=== PATIENT | female | born 1985 | race Caucasian/White ===

== ENCOUNTER 2024-07-04 10:15 | Outpatient (CLI) | payer OTHER, SELFPAY | END 2024-07-04 10:16 | disposition home or self-care (01) | LOC: NFLDREF 07-12 15:36 | PROVIDERS: PCP Family Medicine; Referring Provider Family Medicine; Visit Provider Nurse Practitioner Family | DX: R50.9 Fever, unspecified (principal); R10.9 Unspecified abdominal pain; R82.90 Unspecified abnormal findings in urine | CPT/HCPCS: 87086 ==

== ENCOUNTER 2024-07-04 11:10 | Emergency (ER) | payer OTHER, SELFPAY ==
--- OUTSIDE RECORDS SUMMARY | 2024-07-04 11:12 | XMS_ITS | Encounter Summary ---
Author Organization [employer] Address [address] [place] [address]. [place] [address] Care Team Providers Care Director Of Accounting Name Role Phone Erica Fajardo PA-C Primary Care Pr ovider Shelly Garcia Primary Care Provider Unavaila Erica Keene PA-C Unavailable Heather Eisenberg MD Primary Care Provider [phone]- [phone] Encounter Details Date Type Department Care Team (Late st Contact Info) Description 08/03/2008 Office Visit-[facility] [address] [place] [id number] Mina Moya MD [address] [facility] [address] [place], [place] [address] Social History Tobacco Use Types Packs/Day Years Used Date Smoking Tobacco: Every Day Cigarettes 0.5 3 Comments:since age 17, trymaribell simpson to quit on her own Alcohol Use Standard Drinks/Week Comments Yes 0 (1 standard drink = 0.6 oz pure alcohol) weekends mostly-2 drinks per every 3-4 months Comments No Sex and Gender Information Value Date Recorded Sex Assigned at Not on file Legal 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 DATE: 08/03/2008 CHRISTINE ARAGON DATE OF : 1985 AGE: [age] years old Referring Physician: RAFAL DEUTSCH Referring Clinic: [facility] CURRENT DIAGNOSES 1. - Tobacco excess, 305.1 2. - Syncope, 780.2 ALLERGIES NKA MEDICATIONS (prior to changes made today) 1. Lorazepam 2 mg, Take as Directed CHIEF COMPLAINTS Chest pain HISTORY OF PRESENT ILLNESS I saw Ms. Aragon in consultation today. As you know, she is a very nice 23-year-old woman with past medical history significant for anxiety and depression, for which she is on Pristiq and lorazepam. She also, unfortunately, smokes cigarettes. She has been referred because of frequent, recurring syncopal and near syncopal spells. Ms. Aragon works as a [employer] and she describes her symptoms as feeling warm and hot all over. She then feels like she is developing some tunnel vision. She will slowly start to blackout and can pass out completely. She states, normally she is able to abort this. She feels it coming on. She will often times sit down, lay down and is able to control it. She thinks she has an episode as oftenas once a month. And she states it is quite interfering. She states often times she is quite anxious and worried about it and feels like she is on the verge of having a spell. She notes no triggeringmechanisms. They are not related to stressful situations or emotional situations. She does describe a left-sided chest pain syndrome that occurs in no particular pattern. It can occur when she is performing yoga but it can also occur at rest. She can perform yoga without it happening. She states at times she does get short of breath when she tries to perform yoga and cannot keepup and has to stop, although states she does not exercise on any sort of regular basis. She is unaware of any palpitations or racing heart rhythms. Lab work from your office includes a normal thyroid function test and normal CBC. Electrocardiogramdemonstrates what appears to be a slow sinus rhythm at 56. She has a vertical axis. Otherwise, electrocardiogram appears to be normal. 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 EYES denies diplopia, history of glaucoma or visual field defects. EARS, NOSE, THROAT, MOUTH denies any hearing loss, epistaxis, hoarseness or difficulty speaking. RESPIRATORY dyspnea with exertion CARDIOVASCULAR chest pain, off and on for years, palpitations, dizziness ABDOMINAL denies ulcer disease, hematochezia or melena. MUSCULOSKELETAL denies any history of arthritic symptoms or back problems. NEUROLOGICAL headaches, occ PSYCHIATRIC anxiety controlled with medication, depression controlled with medication ENDOCRINE denies any history of thyroid disease or diabetes mellitus. HEMATOLOGICAL/IMMUNOLOGIC denies any food allergies, seasonal allergies, bleeding disorders. PHYSICAL EXAMINATION VITAL SIGNS: Blood Pressure: 98/70 Sitting, Left arm, regular cuff Pulse- 60.00/min. Weight- 158.20 lbs. Height- 68.00 Temperature- .00 CONSTITUTIONAL cooperative, alert and oriented,well developed, well nourished, in no acute distress. SKIN warm and dry to touch, no apparent skin lesions, or masses noted. HEAD normocephalic, atraumatic EYES Pupils equal and round, conjunctivae and lids unremarkable, sclera white, no xanthalasma ENT no pallor or cyanosis, dentition good NECK carotid pulses are full and equal bilaterally, JVP normal, no carotid bruit, no thyromegaly CHEST normal symmetry, no tenderness to palpation, normal respiratory excursion, no intercostal retraction, no use of accessory muscles, clear to auscultation and percussion. CARDIAC regular rhythm, S1 normal, S2 normal, No S3 or S4, Apical impulse not displaced, no murmurs, gallops or rubs detected. ABDOMEN abdomen soft, bowel sounds normoactive, no masses, no hepatosplenomegaly, non- tender, no bruits PERIPHERAL PULSES pulses full and equal in all extremities, no bruits auscultated. EXTREMITIES & BACK no deformities, clubbing, cyanosis, erythema or edema observed. There are no spinal abnormalities noted. Normal muscle strength and tone. NEUROLOGICAL no gross motor deficits noted, affect appropriate, oriented to time, person and place. MEDICATIONS UPDATED/STARTED TODAY: Lorazepam 2 mg, Take as Directed IMPRESSIONS/PLAN I think Christine gives a very classic story for vasovagal syncope. I think she just runs low blood pressures. Her blood pressure in the office today is 98/70. Her pulse is in the high 50s to low 60s. 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 She may not even have an abnormal vasovagal tone, it is just that she has low blood pressure, low heart rate, and just develops symptoms due to her activity. She doeshave a chest pain syndrome that I think is quite atypical and not cardiac in origin. I will check aHolter monitor to make sure that she does not have any significant arrhythmias or pauses. I will also check a stress echocardiogram both to evaluate for underlying structural heart disease, as well as to evaluate her chest pain syndrome, although I suspect both of these tests will essentially be normal. I have discussed the matter with Dr. Tarun Dinero. He states given her classic symptoms, he thinks a tilt-table is unnecessary and would not provide anymore meaningful information and that he wouldoffer the patient treatment either in the form of midodrine 10 mg PO t.i.d. or Florinef tablets or LORIE hose, although I think she would find LORIE hose socially unacceptable and probably uncomfortable on her feet all day. She is on Pristiq, which is a new SSR and norepinephrine uptake inhibitor. This often times causes hypertension and tachycardia and often times can be useful in treating this problem, although she tawny the medicine already and it has not given her any benefit. Currently, beta-blockers are not considered good treatment for this. Thank you for allowing me to participate in her care. TODAYS ORDERS 1. Treadmill Stress Echo 1 week 2. Holter Monitor 1 week 3. F/U WITH Any EP physician 2-4 weeks Mina Moya M.D. documented in this encounter Plan of Treatment Not on file documented as of this encounter Visit Diagnoses Not on filedocumented in this encounter Care Teams Director Of Accounting Relationship Specialty Start Date End Date Erica Fajardo PA-C [address] [place] [address] PCP - General 05/11/03 02/07/15 Shelly Garcia PCP - General 02/08/15 08/17/21 Heather Eisenberg MD [facility] [address] [place] [address] PCP - General moid middle school teacher 08/18/21 Erica Fajardo PA-C [address] [place] [address] 02/08/15 documented as of this encounter
--- OUTSIDE RECORDS SUMMARY | 2024-07-04 11:12 | XMS_ITS | Clinical Summary ---
Author Organization [facility] Address [place], [place] [address] Care Team Providers Care Psych Np Name Role Phone Cristobal Freeman MD Primary Care Provider [phone] Allergies No known active allergies Medications venlafaxine (EFFEXOR XR) 37.5 mg Extended-Releas e capsuleIndicati ons:Major depressive disorder, recurrent episode, moderate (HC) TAKE ONE CAPSULE BY MOUTH ONCE DAILY WITH A MEAL 90 capsule 7 Active Breast Pump - PurchaseIndicat ions:Lactating mother Electric breast pump for home use. Gestation age at delivery: 39 weeks. Reason for need: . Length of need: 12 months 1 Device 0 Active cetirizine (ZYRTEC) 5 mg tablet Take 5 mg by mouth once daily if needed. Active Breast Pump PurchaseIndicat ions:Vaginal delivery Electric breast pump for home use. Gestational age at delivery: term. Reason for need: separation. Length of need: 99 months (lifetime use) 1 Each 2 Active acetaminophen (TYLENOL EXTRA STRGTH) 500 mg tabletIndicatio ns:Vaginal delivery Take 1-2 Tablets (500-1,000 mg) by mouth every 6 hours if needed (mild pain). Max acetaminophen dose: 4000mg in 24 hrs. 2 Active ibuprofen (Motrin IB) 200 mg tabletIndicatio ns:Vaginal delivery Take 1-3 Tablets (200-600 mg) by mouth every 6 hours if needed (for uterine cramping). Take with food. 100 Tablet 2 Active docusate (COLACE) 100 mg capsuleIndicati ons:Vaginal delivery Take 1 Capsule (100 mg) by mouth 2 times daily if needed for Constipation. 100 Capsule 2 Active vit 28/iron fum/folic (multivitamin folic acid 1 mg)Indications: Vaginal delivery,Postpa rtum care and examination of lactating mother Take 1 Tablet by mouth once daily. 100 Tablet 2 Active Breast Pump PurchaseIndicat ions:Vaginal delivery,Postpa rtum care and examination of lactating mother Electric breast pump for home use. Gestational age at delivery: 39 weeks. Reason for need: . Length of need: 99 months (lifetime use) 1 Each 2 Active Active Problems Problem Noted Date Diagnosed Date Encounter for elective induction of labor 2021 Vaginal delivery 02/14/2022 care and examination of lactating mot her 02/14/2022 Increased nuchal translucency space on ult rasound 09/29/2021 Overview (02/14/2022): NIPT neg, GIRL. NT elevated. 16w US WNL- declined amnio, L2US w/ echo 20w. COVID-19 affecting in first trimester 07/30/2021 Overview (02/14/2022): 06/19/21 - COVID +. Not vaccinated. Family history of trisomy 13 07/30/2021 Overview (02/14/2022): Past for patient. Anxiety disorder 07/24/2021 Supervision of high risk in first trim yarely 03/16/2019 Overview (03/24/2019): Hx of partial molar , hx of trisomy 13 . Hx anxiety and depression. On Effexor. Consult to psych placed Prepregnancy BMI: 24.35 currently Early GCT: not indicated ASA: not indicated Dated by: LMP, no dating US Would accept blood products: yes Pertinent medical information: hx of partial molar , hx of trisomy 13 , HTN in . Previous deliveries reviewed by MD: Vag del X 1 without problems with or delivery screening: Patient is checking insurance regarding [place] screening Screening US: - Dating US 03/24 IUP consistent with dates A Rh Positive History of depression 06/07/2018 Overview (06/07/2018): Using Effexor in . Aware of risks. Concerned about risks of depression - has not done well with switches in past. Used Effexor in first . Declines switch to SSRI or MPP consult this . 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 Supervision of high risk pre gnancy in first trimester 06/07/2018 03/16/2019 Early stage of 04/01/2018 GBS (group B Streptococcus c arrier), +RV culture, currently 10/25/2015 01/16/2016 Constipation in in third trimester 6 01/16/2016 Supervision of normal , antepartum 05/15/2015 01/16/2016 Second 01/16/2016 Immunizations Name Administration Dates Next Due DTaP 02/07/1992 HIB PRP-D (ProHIBIT) 01/04/1988 Hepatitis B (Peds) 10/05/1999,03/05/1999, 999 Inactivated Polio Vaccine 02/07/1992 Influenza, IIV3 (Age >=3 years) 04/23/2015 Influenza, IIV4 03/24/2019,03/31/2018 MMR 01/23/1999,01/04/1988 Td (Age >=7 Years) 01/23/1999 Tdap 09/01/2019,08/28/2015,06/23/2006 Family History Medical History Relation Name Comments Good Health Daughter Alcoholism Father Thyroid Disease Father Good Health Half-Sister Cancer Maternal Grandfather acute l eukemia Other Maternal Grandmother TB, los t one lung Good Health Mother Psychiatric illness Mother Dementia Paternal Grandmother Good Health Sister Psychiatric illness Sister Relation Name Status Comments Daughter Alive Father Alive Half-Sister Alive Maternal Grandfather pneumon ia Maternal Grandmother pneumon ia Mother Alive Paternal Grandfather Paternal Grandmother Alive Sister Alive Social History Tobacco Use Types Packs/Day Years Used Date Smoking Tobacco: Former Cigarettes 0.3 6 0 09/04/2005 - 09/05/2011 Smokeless Tobacco: Never Tobacco Cessation:Counseling Given: No Alcohol Use Standard Drinks/Week Comments Not Currently 0 (1 standard drink = 0.6 oz pur e alcohol) currently PHQ-2 Answer Date Recorded PHQ-2 TOTAL SCORE 0 12/07/2019 Social Connections Answer Date Recorded Frequency of Communication with Friends and Fami ly Not on file 10/01/2022 Financial Resource Strain Answer Date R ecorded Difficulty of Paying Living Expenses Not on file 06/23/2021 Difficulty of Paying Living Expenses Not on file 06/23/2021 Comments No Sex and Gender Information Value Date Recorded Sex Assigned at Not on file Legal Sex Female 7:59 AM CHIEF DATA OFFICER Gender Identity Not on file Sexual Orientation Not on file 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 Not on file Not on file Not on file Obstetrics History Para Term AB IAB SAB Ectopic Multiple Livin g Live Births 8 3 3 0 5 1 3 0 0 3 3 Date Outcome GA Total Labor Labor/2nd/3rd Weight Sex Type Anes PTL Emilia A1 A5 Name Clin 5 SAB 2015 Term 39w 1d 3.52 kg (7 lb 12 oz) F Vag Epidur al Livin g 9 9 Smita Griff iths Complications:None Delivery Location:[facility] 6 SAB 4w0 d Complications:Chemical pregn sho 7 SAB 8 Molar 13w 0d 2018 IAB 20w 3d ELECTI VE AB N Demis e Complications:Trisomy 13 Living Status Comments:triso my 13 Comments:trisomy 13 2019 Term 39w 1d 0h 07m 3.6 kg (7 lb 15 oz) F Vag IV Meds,E pidura l Livin g [address] Complications:None Delivery Location:[facility] ([facility]) 2021 Term 39w 3d 6h 10m 5h 52m/0h 14m/0h 04m 3.61 kg (7 lb 15.3 oz) F Vag-Sp ont Epidur al Sheila g 8 8 BG CANDI GIRON Ann Marie, MD Complications:None Delivery Location:Hospital ( [facility]) Comments 2016 - chemical . F ollowed HCG to <5. 01/2017 - spotting at 6-7 weeks. No HCG. 06/2017 - molar with progesterone use (69, XXY) - D&C and serial HCG. 2018 - 20+ week D&E for trisomy 13. Last Filed Vital Signs Vital Sign Reading Time Taken Comments Blood Pressure 120/64 02/15/2022 8:00 AM CDT Pulse 69 02/15/2022 8:00 AM CDT Temperature 35.9 C (96.6 F) 02/15/2022 8:00 AM CDT Respiratory Rate 15 02/15/2022 8:00 AM CDT Oxygen Saturation 98% 02/15/2022 8:00 AM CDT Inhaled Oxygen Concentration - - Weight 97.5 kg (215 lb) 02/14/2022 8:27 AM CDT Height 175.3 cm (5' 9) 02/14/2022 8:27 AM CDT Body Mass Index 31.75 02/14/2022 8:27 AM CDT Plan of Treatment Health Maintenance Due Date Last Done Comments Pap test for age 21-65 06/26/2020 8, 06/26/2017, 10/03/2014, Additional history exists BMI (ht and wt on same day) for age 18+ 12/06/2020 12/07/2019, 10/25/2019, 10/18/2019, Additional history exists Depression screening for age 12+ 12/06/2020 12/07/2019, 09/07/2019, 09/06/2019, Additional history exists COVID-19 vaccine series (2023- season) 2024 Influenza for age 9-49 02/22/2024 10/02/201 9, 03/31/2018, 04/23/2015 Tetanus booster 08/31/2029 09/01/2019, 12/2015, 06/23/2006, Additional history exists HIV for age 15-65 Completed 03/16/2019, , 05/15/2015 Hepatitis C screening for age 18-79 Completed 03/16/2019 Tdap Completed 09/01/2019, 12/2015, 06/23/2006 Pneumococcal series for age 6-49 Aged Out No longer eligible based on patient's age to complete this topic Procedures Procedure Name Priority Date/Time Associated Diagnosis Comments ANTI HIV 1/2 Routine 03/16/2019 2:02 PM CDT care, subsequent in first trimester ANTI HCV Routine 03/16/2019 2:02 PM CDT care, subsequent in first trimester SCHOOL CLERK THIN PREP PAP SCREEN IMAGED Routine 06/26/2017 11:02 AM CHIEF DATA OFFICER from Last 3 Months or Most Recently Relevant to Health Maintenance Results * ANTI HCV (03/16/2019 2:02 PM CDT) Pathologist [facility] HEPATITIS C ANTIBODY Non-React lakeisha Non-React lakeisha 03/16/2019 9:38 PM CDT [facility] Comment:Antibodies to HCV no t detected; does not exclude the possibility of exposure to HCV. Blood BLOOD SPECIMEN / Unknown Venipuncture / Unknown 03/16/2019 2:02 PM CDT 03/16/2019 2:02 PM CDT us Marcela Palmer NP SEND OUTS Final Result [facility] [address] [place] [address], * ANTI HIV 1/2 (03/16/2019 2:02 PM CDT) Pathologist [facility] HIV-1/HIV-2 ANTIBODY Non-Reacti ve Non-Reacti ve 03/16/2019 9:34 PM CDT [facility] Comment:HIV-1 p24 and HIV-1/ HIV-2 Ab not detected. Blood BLOOD SPECIMEN / Unknown Venipuncture / Unknown 03/16/2019 2:02 PM CDT 03/16/2019 2:02 PM CDT us Marcela Palmer NP SEND OUTS Final Result [facility] [address] [place] [address], [place] * SCHOOL CLERK THIN PREP PAP SCREEN IMAGED (06/26/2017 11:02 AM CHIEF DATA OFFICER) Case Report Gynecologic Cytology Report Case: [id number] Authorizing Provider: Veronica Casanova MD Collected: 06/26/2017 1102 First Screen: Nico Ingram Received: 06/29/2017 1102 Specimen: SCHOOL CLERK ThinPrep Vial Screening, Cervical/Vaginal 07/07/2017 9:05 AM [facility] INTERPRETATION/ RESULT NEGATIVE FOR INTRAEPITHELIAL LESION OR MALIGNANCY (NIL) (none) 07/07/2017 9:05 AM CHIEF DATA OFFICER [facility] NISM(S) Fungal organisms morphologically consistent with Zuleyka species 07/07/2017 9:05 AM CHIEF DATA OFFICER [facility] SPECIMEN ADEQUACY Satisfactory for evaluation No endocervical component seen in a patient 07/07/2017 9:05 AM CHIEF DATA OFFICER [facility] HPV REQUEST HPV and PAP 07/07/2017 9:05 AM CHIEF DATA OFFICER [facility] Date of LMP 03/23/2017 07/07/2017 9:05 AM CHIEF DATA OFFICER [facility] Menstrual Status 07/07/2017 9:05 AM CHIEF DATA OFFICER [facility] Automated Review Successful 07/07/2017 9:05 AM [facility] Comment:Specimen processed s uccessfully by automated corporate sales trainer device, ThinPrep Imaging System, [employer] ANCILLARY TESTING SCHOOL CLERK HPV Ordered, Please see separate report 07/07/2017 9:05 AM CHIEF DATA OFFICER [facility] Note The pap test is a screening technique, not a diagnostic procedure. It is used primarily to screen for squamous cancers and precursor lesions. Published studies have shown that it is subject to both false negative and false positive results. The pap test should not be used as the sole means to diagnose or exclude pre-malignant and malignant lesions. Interpreted at [facility] ([facility], [facility], [facility], [facility], [facility], [facility], [facility]) 07/07/2017 9:05 AM CHIEF DATA OFFICER [facility] Other (Cervical/Vagina l) 06/26/2017 11:02 AM CHIEF DATA OFFICER 06/29/2017 11:02 AM CHIEF DATA OFFICER Veronica Casanova MD PATHOLOGY/CYTOLOGY Final Result [facility] [address] [place] [address], from Last 3 Months or Most Recently Relevant to Health Maintenance Insurance [facility] Advance Directives * Full Code (Latest Code Status on File) Date Activated Date Inactivated Comments 02/14/2022 8:02 AM 02/15/2022 7:53 PM Question Answer Comments Code Status Discussion: Reviewed Preferences * Full Code Date Activated Date Inactivated Comments 11/01/2019 6:52 AM 11/02/2019 3:57 PM * Full Code Date Activated Date Inactivated Comments 11/12/2015 3:09 AM 11/13/2015 1:49 PM * Full Code Date Activated Date Inactivated Comments 11/11/2015 8:00 PM 11/12/2015 3:09 AM * Full Code Date Activated Date Inactivated Comments 11/11/2015 5:55 AM 11/11/2015 8:38 AM Care Teams Psych Np Relationship Specialty Start Date End Date Cristobal Freeman MD PCP - General Family Practice 06/30/18
--- OUTSIDE RECORDS SUMMARY | 2024-07-04 11:12 | XMS_ITS | Clinical Summary ---
Author Organization [facility] Address [address] [place] [address] Care Team Providers Care Batch And Furnace Operator Name Role Phone Needs Pcp, Assignment Primary Care Provider [phone] Source Comments You are receiving this document as you are listed as the primary care provider,follow-up provider, or the patient has been referred to you for consultation.This is in compliance with the Medicare and[facility] EHR Incentive Program,which states Providers who transition their patient to another setting of careor provider of care or refers their patient to another provider of care shouldprovide summary care record for each transition of care or referral. [employer] Allergies No known active allergies Medications Medication Sig Dispensed Refills Start Date End Date Status VITAMIN D OR Active Pyridoxine HCl (VITAMIN B-6) 50 MG tablet Take 1 Tablet (50 mg) by mouth daily. Active cetirizine (ZYRTEC) 5 MG tablet Take by mouth daily. Active progesterone (PROMETRIUM) 100 MG capsule Take 1 Capsule (100 mg) by mouth daily at bedtime. 01/31/2023 Active Vit-DSS-Fe Fum-FA ( 19) Active Cyanocobalamin (VITAMIN B-12 CR OR) Active venlafaxine (EFFEXORXR) 37.5 MG 24 hour release capsule Take 1 Capsule (37.5 mg) by mouth daily. Appt with Dominique Lewis MD on 07/14/2024 for continued refills. 30 Capsule 06/14/2024 Active venlafaxine (EFFEXORXR) 37.5 MG 24 hour release capsule Take 1 Capsule (37.5 mg) by mouth daily. 90 Capsule 1 12/09/2023 12/23/202 4 Discontinued Active Problems Problem Noted Date Diagnosed Date Family history of trisomy 13 07/30/2021 Overview (07/30/2021): Past for patient. History of molar 07/30/2021 COVID-19 affecting in first trimester 07/30/2021 Overview (07/30/2021): 06/19/21 - COVID +. Not vaccinated. Anxiety disorder 07/24/2021 PMDD (premenstrual dysphoric disorder) 1 Resolved Problems Problem Noted Date Diagnosed Date Resolved Date Antepartum multigravida of a dvanced maternal age 0611/22/2021 08/23/2022 Subchorionic hemorrhage in first trimester 09/29/2021 08/23/2022 Vaginal bleeding in 09/29/2021 08/23/2022 Increased nuchal translucenc y space on ultrasound 09/29/2021 08/23/2022 Overview (09/29/2021): NIPT neg, GIRL. NT elevated. 16w US WNL- declined amnio, L2US w/ echo 20w. High risk , antepartum 07/30/2021 08/23/2022 Overview (08/28/2021): NIPT neg, GIRL. NT elevated. US, echo, GC and amnio w/ MFM 16w, L2US 20w. state 07/24/2021 06/05/2023 Overview (08/23/2022): Daughter Tori born 02/14/2022 Chronic depression 01/27/2021 1 Immunizations Name Administration Dates Next Due DTaP 02/07/1992 Flu Vac (3+ yrs) 04/23/2015 HepB Ped/Adol (0-18 yrs) 10/05/1999,03/05/1999,0 01/23/1999 Hib (PRP-D) 01/04/1988 IPV (Polio) 02/07/1992 Influenza IIV4 (Quadrivalent ) 0.5mL (76923) 07/30/2021,03/24/2019,03/31/2018, 017 Influenza LAIV (Nasal, 2-49 yrs) 06/02/2020 MMR 01/23/1999,01/04/1988 Td 01/23/1999 Tdap 11/26/2021, 0,08/28/2015, 007 Family History Medical History Relation Name Comments Alcohol Abuse Father Bipolar Disorder Father h/o SAs, ps ych hosps Cancer Father Mouth Depression Father Depression Mother Cancer Maternal Grandfather Melanom a & Leukemia Depression Maternal Grandfather Depression Maternal Grandmother Tuberculosis Maternal Grandmother Alcohol Abuse Paternal Grandfather Depression Paternal Grandfather Thyroid Disorder Paternal Grandfather Depression Paternal Grandmother Depression Sister PMDD Sister Prozac, luteal phase dosing Relation Name Status Comments Father Alive Mother Alive Maternal Grandfather Maternal Grandmother Paternal Grandfather Paternal Grandmother Sister Alive Social History Tobacco Use Types Packs/Day Years Used Date Smoking Tobacco: Former Cigarettes 0.5 10 0 06/23/2003 - 06/23/2013 Smokeless Tobacco: Never Tobacco Cessation:Counseling Given: Not Answered Alcohol Use Standard Drinks/Week Comments Not Currently 0 (1 standard drink = 0.6 oz pur e alcohol) PHQ-2 Answer Date Recorded PHQ-2 Score 0 01/02/2022 Depression Answer Date Recor ded Last EPDS Total Score 4 08/22/2022 Last EPDS Self Harm Result 0-->never 08/22 Education Answer Date Recorded What is the highest level of school you have completed or the highest degree you have received? High school graduate 03/20/2021 Sex and Gender Information Value Date Recorded Sex Assigned at Female 03/16/2021 11:24 AM CDT Gender Identity Female 03/16/2021 11:24 AM CDT Sexual Orientation Straight 03/16/2021 11 :24 AM CDT Last Filed Vital Signs Vital Sign Reading Time Taken Comments Blood Pressure 111/59 02/25/2023 1:49 PM CDT Pulse 58 02/25/2023 1:49 PM CDT Temperature 36.6 C (97.9 F) 01/08/2023 8:29 AM CDT Respiratory Rate 14 01/08/2023 8:29 AM CDT Oxygen Saturation 98% 01/08/2023 8:29 AM CDT Inhaled Oxygen Concentration - - Weight 80.4 kg (177 lb 3.2 oz) 02/25/2023 1:49 P M CDT Height 175.3 cm (5' 9) 07/30/2021 1:03 PM GEAR SHAVER SET UP OPERATOR Body Mass Index 26.17 07/30/2021 1:03 PM GEAR SHAVER SET UP OPERATOR Plan of Treatment Health Maintenance Due Date Last Done Comments IPV (Polio) (2 of 3 - 4-dose series) 03/06/1992 02/07/1992 Adult Preventive Visit 2004 COVID-19 Vaccine ( season) 2024 Influenza (#1) 2024 07/30/2021, 05/23, 03/24/2019, Additional history exists Cervical Cancer Screening 07/30/2026 07/30/2021 DTaP/Tdap/Td (7 - Tdap) 11/27/2031 11/27/19, 09/01/2019, 08/28/2015, Additional history exists Zoster/Shingles (1 of 2) 2036 Hib Completed 01/04/1988 HepB Completed 10/05/1999, 02/21, 01/23/1999 HIV Screening (Preventive Services) Completed 07/30/2021, 03/16/2019 Hep C Screening (Preventive Services) Completed 07/30/2021 HPV Vaccine Aged Out No longer eligi ble based on patient's age to complete this topic HepA Aged Out No longer eligi ble based on patient's age to complete this topic MCV4 Aged Out No longer eligi ble based on patient's age to complete this topic Pneumococcal Aged Out No longer eligi ble based on patient's age to complete this topic Procedures Procedure Name Priority Date/Time Associated Diagnosis Comments PAP TEST Routine 07/30/2021 2:16 PM GEAR SHAVER SET UP OPERATOR High-risk in first trimester Screening for malignant neoplasm of cervix HIV 1/2 AG/AB 4TH GEN Routine 07/30/2021 2:14 PM GEAR SHAVER SET UP OPERATOR High-risk in first trimester HEPATITIS C ANTIBODY, WITH REFLEX Routine 07/30/2021 2:14 PM GEAR SHAVER SET UP OPERATOR High-risk in first trimester from Last 3 Months or Most Recently Relevant to Health Maintenance Results * PAP Test (07/30/2021 2:16 PM GEAR SHAVER SET UP OPERATOR) Case Report Pap Case: [id number] Authorizing Provider: Heather Murphy MD Collected: 07/30/2021 1416 Ordering Location: [place] [address] Received: 07/30/2021 1550 Obstetrics/Gynec ology First Screen: Anitha Santillan Rescreen: Lidia Ferrera CT (ASCP) Specimen: Pap Test, Routine, Cervix/Endocervix 08/10/2021 2:37 PM GEAR SHAVER SET UP OPERATOR [facility] Pap Specimen Adequacy Satisfactory for evaluation, endocervical/madison sformation zone component present. 08/10/2021 2:37 PM GEAR SHAVER SET UP OPERATOR [facility] Pap Interpretation (NILM) Negative for intraepithelial lesion or malignancy. 08/10/2021 2:37 PM GEAR SHAVER SET UP OPERATOR [facility] Pap Disclaimer The Pap test is a screening test designed to aid in the detection of cervical cancer and its precursor lesions. It is not a diagnostic procedure and should not be used as the sole means of detecting cervical cancer. Both false-positive and false-negative results may occur. 08/10/2021 2:37 PM GEAR SHAVER SET UP OPERATOR [facility] Gross Description The specimen is received in SurePath fixative and properly labeled. 1 Pap-stained SurePath slide is prepared. 08/10/2021 2:37 PM GEAR SHAVER SET UP OPERATOR [facility] Embedded Images 2:37 PM GEAR SHAVER SET UP OPERATOR [facility] Other Specimen Type ENTIRE ENDOCERVIX / Unknown 07/30/2021 2:16 PM GEAR SHAVER SET UP OPERATOR 07/30/2021 3:50 PM GEAR SHAVER SET UP OPERATOR Comment:LMP: Patient's last menstrual period was 05/17/2021. Heather Murphy MD LAB PATHOLOGY [facility] [address] * HIV 1/2 Ag/Ab 4th Generation (07/30/2021 2:14 PM GEAR SHAVER SET UP OPERATOR) HIV 1/2 Antigen/Antib fredi (4th generation) Negative (Non Reactive) Negative (Non Reactive) 07/30/2021 8:26 PM GEAR SHAVER SET UP OPERATOR [facility] Comment:HIV-1 p24 Antigen an d HIV-1/HIV-2 Antibody not detected Blood Venipuncture / Unknown 07/30/2021 2:14 PM GEAR SHAVER SET UP OPERATOR 07/30/2021 2:14 PM GEAR SHAVER SET UP OPERATOR Heather Murphy MD LAB_1 Performing Organization Address City/[facility]/ZIP Co de Phone Number [facility] * Hepatitis C Antibody, with Reflex (07/30/2021 2:14 PM GEAR SHAVER SET UP OPERATOR) Hepatitis C Antibody Negative (Non Reactive) Negative (Non Reactive) 07/30/2021 8:26 PM GEAR SHAVER SET UP OPERATOR [facility] Comment:Antibodies to HCV no t detected. Does not exclude the possiblity of exposure to HCV. Blood Venipuncture / Unknown 07/30/2021 2:14 PM GEAR SHAVER SET UP OPERATOR 07/30/2021 2:14 PM GEAR SHAVER SET UP OPERATOR Heather Murphy MD LAB_1 Performing Organization Address [facility]/ZIP Co de Phone Number [facility] [address] from Last 3 Months or Most Recently Relevant to Health Maintenance Care Teams Batch And Furnace Operator Relationship Specialty Start Date End Date Needs Pcp, [place] [address] PCP - General 01/14/24
--- OUTSIDE RECORDS SUMMARY | 2024-07-04 11:12 | XMS_ITS | Encounter Summary ---
Author Organization [facility] Address [address] [place] [address]. [place] [address] Care Team Providers Care Asw Specialist Name Role Phone Erica Fajardo PA-C Unavailable Heather Eisenberg MD Primary Care Provider [phone] Encounter Details Date Type Department Care Team (Late st Contact Info) Description 08/18/2021 Documentation Only INTERFACED REPORT Unknown, Provider Social History Tobacco Use Types Packs/Day Years Used Date Smoking Tobacco: Never Assessed Cigarettes 0.5 3 Comments:since age 17, trymaribell simpson to quit on her own Alcohol Use Standard Drinks/Week Comments Yes 0 (1 standard drink = 0.6 oz pure alcohol) weekends mostly-2 drinks per every 3-4 months Comments Yes Sex and Gender Information Value Date Recorded Sex Assigned at Not on file Legal Sex Female 3:38 AM CARRY OUT CLERK AND SHELF STOCKER Gender Identity Not on file Sexual Orientation Not on file 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 No / Unsure 08/18/2021 6:01 PM CARRY OUT CLERK AND SHELF STOCKER documented as of this encounter Plan of Treatment Not on file documented as of this encounter Visit Diagnoses Not on filedocumented in this encounter Care Teams Asw Specialist Relationship Specialty Start Date End Date Heather Eisenberg MD [facility] [address] [place] [address] PCP - General egg processor 08/18/21 Erica Fajardo PA-C [address] [place] [address] 02/08/15 documented as of this encounter
--- OUTSIDE RECORDS SUMMARY | 2024-07-04 11:12 | XMS_ITS | Clinical Summary ---
Author Organization [facility] Address [address] [place] [address] Care Team Providers Care Chemical Plant Technical Director Name Role Phone Erica Fajardo PA-C Unavailable Heather Eisenberg MD Primary Care Provider [phone]- [phone] Allergies Active Allergy Reactions Criticality Noted Date Comments No Known Drug Allergy 04/06/2003 Medications LORAZEPAM 2 MG OR TABSIndications:A bdominal pain, other specified site 1 TABLET thress x DAILY 0 0 05/11/2008 Active NO ACTIVE MEDICATIONS . Active Vit-Fe Fumarate-FA ( MULTIVITAMIN PLUS IRON) 27-0.8 MG TABS Take 1 tablet by mouth daily Active Venlafaxine HCl (EFFEXOR PO) Take by mouth 3 times daily Active Active Problems Problem Noted Date Diagnosed Date Indication for care in labor or delivery 022 CARDIOVASCULAR SCREENING; LDL GOAL LESS THAN 160 04/22/2010 Syncope and collapse 12/13/2006 Depressive disorder, not elsewhere classified Tobacco use disorder Resolved Problems Problem Noted Date Diagnosed Date Resolved Date Dysthymic disorder 03/14/2006 7 Immunizations Name Administration Dates Next Due TD,PF 7+ (Tenivac) 01/04/2007 Family History Medical History Relation Comments Neurologic Disorder Maternal Grandmother Neurologic Disorder Paternal Grandmother ms Family History Negative No family hx of Relation Status Comments Father Alive Maternal Grandfather Alive Maternal Grandmother Mother Alive Paternal Grandfather Paternal Grandmother Alive Social History Tobacco Use Types Packs/Day Years Used Date Smoking Tobacco: Never Assessed Cigarettes 0.5 3 Comments:since age 17, trymaribell simpson to quit on her own Alcohol Use Standard Drinks/Week Comments Yes 0 (1 standard drink = 0.6 oz pure alcohol) weekends mostly-2 drinks per every 3-4 months Adolescent Education Answer Date Record ed Getting School Help Needed Not on file 03/24 Comments No Sex and Gender Information Value Date Recorded Sex Assigned at Not on file Legal Sex Female 3:38 AM PRESSER AND BLOCKER [employer]ITT[employer] GOODS Gender Identity Not on file Sexual Orientation Not on file 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 Not on file Not on file Last Filed Vital Signs Vital Sign Reading Time Taken Comments Blood Pressure 119/60 12/24/2021 3:25 PM CDT Pulse 65 08/18/2021 6:30 PM PRESSER AND BLOCKER [employer]ED GOODS Temperature 36.9 C (98.4 F) 12/24/2021 3:15 PM CDT Respiratory Rate 18 12/24/2021 3:15 PM CDT Oxygen Saturation 98% 08/18/2021 6:40 PM PRESSER AND BLOCKER [employer] GOODS Inhaled Oxygen Concentration - - Weight 72.6 kg (160 lb) 02/08/2015 6:05 PM CDT Height 175.3 cm (5' 9) 11/21/2008 10:02 AM CDT Body Mass Index 23.63 11/21/2008 10:02 AM CDT Plan of Treatment Health Maintenance Due Date Last Done Comments ADVANCE CARE PLANNING 1986 ANNUAL REVIEW OF HM ORDERS 1986 HIV SCREENING 2001 YEARLY PREVENTIVE VISIT 04/06/2004 04/06/2003 HEPATITIS C SCREENING 2004 Pneumococcal Vaccine: Pediatrics (0 to 5 Years) and At-Risk Patients (6 to 49 Years) (1 of 2 - PCV) 2005 PAP 07/30/2022 07/30/2021, 07/30/2021 PHQ-2 (once per calendar year) 2023 COVID-19 Vaccine ( - season) 2024 INFLUENZA VACCINE (#1) 2024 , 06/02/2020, 03/24/2019, Additional history exists GLUCOSE 08/18/2024 08/18/2021, 02/2009, 07/01/2008, Additional history exists DTAP/TDAP/TD IMMUNIZATION (8 - Td or Tdap) 11/27/2031 11/26/2021, 09/01/2019, 08/28/2015, Additional history exists RSV VACCINE (1 - 1-dose 75+ series) 2061 HEPATITIS B IMMUNIZATION Completed 000, 03/05/1999, 01/23/1999 HPV IMMUNIZATION Aged Out No longer e ligible based on patient's age to complete this topic MENINGITIS IMMUNIZATION Aged Out No l onger eligible based on patient's age to complete this topic RSV MONOCLONAL ANTIBODY Aged Out No l onger eligible based on patient's age to complete this topic Procedures Procedure Name Priority Date/Time Associated Diagnosis Comments BASIC METABOLIC PANEL STAT 08/18/2021 6:28 PM PRESSER AND BLOCKER [employer]ED GOODS from Last 3 Months or Most Recently Relevant to Health Maintenance Results * (ABNORMAL) Basic metabolic panel (08/18/2021 6:28 PM PRESSER AND BLOCKER [employer]) Sodium 137 133 - 144 mmol/L 08/18/2021 6:55 PM [facility] Potassium 3.6 3.4 - 5.3 mmol/L 08/18/2021 6:55 PM [employer] [facility] Chloride 107 94 - 109 mmol/L 08/18/2021 6:55 PM [employer] [facility] Carbon Dioxide (CO2) 25 20 - 32 mmol/L 08/18/2021 6:55 PM [employer] [facility] Anion Gap 5 3 - 14 mmol/L 08/18/2021 6:55 PM [employer] [facility] Urea Nitrogen 11 7 - 30 mg/dL 08/18/2021 6:55 PM [employer] [facility] Creatinine 0.70 0.52 - 1.04 mg/dL 08/18/2021 6:55 PM [employer] [facility] Calcium 8.6 8.5 - 10.1 mg/dL 08/18/2021 6:55 PM [employer] [facility] Glucose 102(H) 70 - 99 mg/dL 08/18/2021 6:55 PM [employer] [facility] GFR Estimate >90 >60 mL/min/1.7 3m2 08/18/2021 6:55 PM [employer] AND BLOCKER [employer] [facility] Comment:Effective May 242020 eGFRcr in adults is calculated using the 2020 CKD-EPI creatinine equation which includes age and gender (Rope Cutter et al., NEJM, DOI: 10.1056/ECEOyn3982619) Blood STRUCTURE OF RIGHT UPPER LIMB / Unknown Venipuncture / Unknown 08/18/2021 6:28 PM PRESSER AND BLOCKER K[employer]ITTED [employer] 08/18/2021 6:34 PM PRESSER AND BLOCKER K[employer]ITTED [employer] us Bia Scott MD LAB - BLOOD ORDERAB LES Final Result [facility] [address] [facility] Lab (1st floor, no room number) [place] [address], [facility] [phone] from Last 3 Months or Most Recently Relevant to Health Maintenance Insurance [facility] Care Teams Chemical Plant Technical Director Relationship Specialty Start Date End Date Heather Eisenberg MD [facility] [address] [place] [address] PCP - General volunteer services specialist 08/18/21 Erica Fajardo PA-C [address] [place] [address] 02/08/15
--- OUTSIDE RECORDS SUMMARY | 2024-07-04 11:12 | XMS_ITS | Referral Summary ---
Author Organization [facility] Address [address] [place] [address] Care Team Providers Care Cuff Turner Name Role Phone Erica Fajardo PA-C Unavailable Heather Eisenberg MD Primary Care Provider [phone]- [phone] Allergies Active Allergy Reactions Criticality Noted Date [...] Name Administration Dates Next Due TD,PF 7+ (Teniva) 01/04/2007 Social History Tobacco Use Types Packs/Day Years Used Date Smoking Tobacco: Never Assessed Cigarettes 0.5 3 Comments:since age 17, tryin g to quit on her own Alcohol Use Standard Drinks/Week Comments Yes 0 (1 standard drink = 0.6 oz pure alcohol) weekends mostly-2 drinks per every 3-4 months Adolescent Education Answer Date Record ed Getting School Help Needed Not on file 03/24 Comments No Sex and Gender Information Value Date Recorded Sex Assigned at Not on file Legal Sex Female 3:38 AM NUMERICAL CONTROL OPERATOR Gender Identity Not on file Sexual Orientation Not on file 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 Not on file Not on file Last Filed Vital Signs Vital Sign Reading Time Taken Comments Blood Pressure 119/60 12/24/2021 3:25 PM CDT Pulse 65 08/18/2021 6:30 PM NUMERICAL CONTROL OPERATOR Temperature 36.9 C (98.4 F) 12/24/2021 3:15 PM CDT Respiratory Rate 18 12/24/2021 3:15 PM CDT Oxygen Saturation 98% 08/18/2021 6:40 PM NUMERICAL CONTROL OPERATOR Inhaled Oxygen Concentration - - Weight 72.6 kg (160 lb) 02/08/2015 6:05 PM CDT Height 175.3 cm (5' 9) 11/21/2008 10:02 AM CDT Body Mass Index 23.63 11/21/2008 10:02 AM CDT Plan of Treatment Not on file Procedures Procedure Name Priority Date/Time Associated Diagnosis Comments BASIC METABOLIC PANEL STAT 08/18/2021 6:28 PM NUMERICAL CONTROL OPERATOR from Last 3 Months or Most Recently Relevant to Health Maintenance Results * (ABNORMAL) Basic metabolic panel (08/18/2021 6:28 PM NUMERICAL CONTROL OPERATOR) Sodium 137 133 - 144 mmol/L 08/18/2021 6:55 PM [facility] Potassium 3.6 3.4 - 5.3 mmol/L 08/18/2021 6:55 PM [facility] Chloride 107 94 - 109 mmol/L 08/18/2021 6:55 PM [facility] Carbon Dioxide (CO2) 25 20 - 32 mmol/L 08/18/2021 6:55 PM [facility] Anion Gap 5 3 - 14 mmol/L 08/18/2021 6:55 PM [facility] Urea Nitrogen 11 7 - 30 mg/dL 08/18/2021 6:55 PM [facility] Creatinine 0.70 0.52 - 1.04 mg/dL 08/18/2021 6:55 PM [facility] Calcium 8.6 8.5 - 10.1 mg/dL 08/18/2021 6:55 PM NUMERICAL CONTROL OPERATOR LAB[facility]ATORY Glucose 102(H) 70 - 99 mg/dL 08/18/2021 6:55 PM NUMERICAL CONTROL OPERATOR [facility] GFR Estimate >90 >60 mL/min/1.7 3m2 08/18/2021 6:55 PM NUMERICAL CONTROL OPERATOR [facility] Comment:Effective May 242020 eGFRcr in adults is calculated using the 2020 CKD-EPI creatinine equation which includes age and gender (Shahzad et al., NEJ, DOI: 10.1056/UXRCwv3393180) Blood STRUCTURE OF RIGHT UPPER LIMB / Unknown Venipuncture / Unknown 08/18/2021 6:28 PM NUMERICAL CONTROL OPERATOR 08/18/2021 6:34 PM NUMERICAL CONTROL OPERATOR us Bia Scott MD LAB - BLOOD ORDERAB LES Final Result [facility] [address] [facility], no room number) [place] [address] [phone] from Last 3 Months or Most Recently Relevant to Health Maintenance Insurance [facility] Care Teams Cuff Turner Relationship Specialty Start Date End Date Heather Eisenberg MD [facility] [address] [place] [address] PCP - General patient care associate 08/18/21 Erica Fajardo PA-C [address] [place] [address] 02/08/15
--- OUTSIDE RECORDS SUMMARY | 2024-07-04 11:12 | XMS_ITS | Encounter Summary ---
Author Organization [facility] Address [address] [place] [address] Care Team Providers Care Parts Cataloguer Name Role Phone Doctor, Enzo BERG Primary Care Provider Erica Barnes PA-C Primary Care Pr ovider Shelly Garcia Primary Care Provider Erica Toney PA-C Unavailable Heather Eisenberg MD Primary Care Provider [phone]- [phone] Encounter Details Date Type Department Care Team (Late st Contact Info) Description 03/14/[address] [place] [address] Kendra Sparks MD [address] [place] [address] ER ENCOUNTER (Primary Dx) Social History Tobacco Use Types Packs/Day Years Used Date Smoking Tobacco: Never Assessed Cigarettes 0.5 3 Comments:since age 17, trysiomara simpson to quit on her own Alcohol Use Standard Drinks/Week Comments Yes 0 (1 standard drink = 0.6 oz pure alcohol) weekends mostly-2 drinks per every 3-4 months Comments No Sex and Gender Information Value Date Recorded Sex Assigned at Not on file Legal Sex Female 3:38 AM ADVANCED MANAGER Gender Identity Not on file Sexual Orientation Not on file 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 HISTORY OF PRESENT ILLNESS: Mckenzie is a 16 -year-old girl. She has had a history of depression. She has been taking Zoloft daily for five days. She was on Effexor prior to Zoloft and it didn't feel like that was working and that is why she was switched to Zoloft. Today she feels sad and she feels frustrated in that no one is able to help her . Today she took drugs into her room, but did not take any. Last year she had an attempted overdose with medications. For that reason mom brings her into the Emergency Room. On close questioning Bacilio frankel denies wanting to harm herself, she just wanted somebody to be able to tell her what was wrong wi th her and she felt that this would prompt a visit to the Emergency Room. REVIEW OF SYSTEMS: Genera l; she denies any headache. Eyes without erythema or discharge. ENT; she has a runny nose, but no e arache or sore throat. Respiratory; no difficulty breathing or cough. Cardiac; no chest pain. GI; n o nausea, vomiting or diarrhea. She has been eating well. She has had no weight loss. ; last men strual period was one week ago, normal and on time. PAST MEDICAL HISTORY: Hospitalization for a dann cide attempt . No surgeries. ALLERGIES: None. MEDICATIONS: Zoloft. SOCIAL HISTORY: She i s here with mom. She goes to school. She says that she feels depressed in general and cannot name a n insighting event. She emphatically denies wanting to harm herself or anyone else, or kill herself or anyone else. PHYSICAL EXAMINATION: This is an alert and cooperative young woman in no acute dist ress. She has a temperature of 97.4, pulse 87, respiratory rate 18, blood pressure 114/58, sats are 99%. Atraumatic, normocephalic skull and face are noted. Her eyes are clear without erythema or dis charge. Tympanic membranes are clear. She has no nasal discharge. Oropharynx is moist. Neck is mesa pple and lungs are clear. MEDICAL DECISION MAKING: I spent quite some time with the patient just sp eaking with her. She emphatically denied wanting to harm herself or kill herself. She did not feel that she wanted to harm or kill anyone else. We discussed the Zoloft, we discussed her follow up. S he does have a psychiatric interview on Friday, and at this point mom felt she was safe to be discha rged to home. We did discuss the etiology of depression which seemed to calm her. At this point I f eel that the patient can be discharged home in the care of her mom. DISCHARGE PLAN: Zoloft as direc lauren. Return to the Emergency Room and see your psychologist Friday. DISCHARGE DIAGNOSIS: Depressi on. DISPOSITION: To home. [id number] _ SHAUNNA LEAL MD [place] : Document: [id number] [place], [place] Name: MCKENZIE DICKERSON EMERGENCY ROOM ENCOUNTER Page 2 of 2 LCN: ERC DSC: 03/14/2002 [place], [place] Name: MR#: : Admit Date: MCKENZIE DICKERSON -88 1985 03/14/2002 D octor: SHAUNNA LEAL MD EMERGENCY ROOM ENCOUNTER Page 1 of 2 Electronically filed by Anders olivas 06/10/2002 2:47 PM documented in this encounter Plan of Treatment Not on file documented as of this encounter Visit Diagnoses Diagnosis ER ENCOUNTER- Primary documented in this encounter Care Teams Parts Cataloguer Relationship Specialty Start Date End Date Enzo Diaz MD PCP - General 08/07/01 05/10/03 Erica Fajardo PA-C [address] [place] [address] PCP - General 05/11/03 02/07/15 Shelly Garcia PCP - General 02/08/15 08/17/21 Heather Eisenberg MD [facility] [address] [place] [address] PCP - General small wind energy installer 08/18/21 Erica Fajardo PA-C [address] [place] [address] 02/08/15 documented as of this encounter
[2024-07-04 11:36] VITALS: BP 111/77; PULSE 89; RESP 18; O2SAT 98; BMI 25.8
[2024-07-04 11:45] VITALS: TEMP 37.2
--- NOTE | 2024-07-04 11:49 | CRLHL7_ITS ---
For Patients: As a result of the Century Cures Act, medical imaging exams and procedure reports are released immediately into your electronic medical record. You may view this report before your referring provider. If you have questions, please contact your health care provider. Indication: Bilateral flank pain, concern for pyelonephritis Technique: Volumetric multidetector CT images of the abdomen and pelvis were obtained after the administration of intravenous contrast. 85 cc Isovue 370 low osmolar intravenous contrast Comparison: None available. Findings: The lung bases are clear. The liver is normal in attenuation without intrahepatic biliary ductal dilatation. The portal vein is patent. The gallbladder is unremarkable without evidence of radiopaque calculus. There is no significant common biliary ductal dilatation or abrupt cut off. The spleen is normal in enhancement and size. The stomach and duodenum are grossly unremarkable. The pancreas is normal in enhancement without significant atrophy. The adrenal glands are unremarkable. The kidneys demonstrate grossly preserved corticomedullary differentiation without evidence of streaky infarcts to suggest pyelonephritis. There is moderate stool seen throughout the colon without evidence of significant pericolonic inflammatory change. The appendix is unremarkable. There is no significant mesenteric, retroperitoneal, or pelvic sidewall lymph nodes. The aorta is nonaneurysmal. There is no significant atherosclerotic disease appreciated. There is demonstration of involuting bilateral ovarian follicles myix-[id number]-dpwl-right. Otherwise the pelvic viscera are grossly within normal limits. There is no free fluid or free air. Mild diastasis of the rectus muscle. The lumbar vertebral body heights are grossly maintained in satisfactory alignment without evidence of displaced fracture, lytic or blastic lesion. Impression: 1. Grossly preserved bilateral renal corticomedullary differentiation without obvious streaky infarcts or perinephric stranding to suggest pyelonephritis. 2. Demonstration involuting bilateral ovarian follicles. 3. No other acute intra-abdominal abnormalities are appreciated. Please note that all CT scans at this facility use dose modulation, iterative reconstruction, and/or weight-based dosing when appropriate to reduce radiation dose to as low as reasonably achievable. Dictated by Quintin Calderon MD @ 07/04/2024 1:46:24 PM (Electronically Signed)
--- NOTE | 2024-07-04 11:59 | ED_ITS ---
HPI - General Adult General Date Seen: 07/04/24 Chief complaint: Flank Pain Stated complaint: kidney infection-sent from urgent care Time Seen by Provider: 07/04/24 11:44 Source: patient Mode of arrival: ambulatory Limitations: no limitations History of Present Illness HPI narrative: Patient is a 39-year-old female presenting to emergency department for bilateral flank pain. She states she started having symptoms yesterday. Has been having intermittent fevers since Friday. States is worse on the right compared to left describes as a cramping pain that occasionally becomes stabbing in nature. States several houses been sick for the past few days so she was taking care of them and did not really notice herself getting sicker until pain began. The also been having increased urinary frequency and states her urine is dark. It is not malodorous though. Denies any pain with urination. Not concerned of STDs. She initially went to urgent care will and sent her to the emergency department for imaging for possible pyelonephritis versus kidney stones. She has no history of kidney stones. Does state the pain in her flank does radiate to her bilateral lower abdomen which she describes as a cramping sensation similar to when she is on her menstrual period. Has not had any fevers. She has had flu-like symptoms for the past week and half. CBC shows no concerning findings at urgent care but she is flu positive. Urinalysis shows a possible UTI. No previous abdominal surgeries. No other concerns noted. Related Data Home Medications ?Medication ?Instructions ?Recorded ?Confirmed venlafaxine 37.5 mg mg PO 07/22/23 07/04/24 capsule,extended release 24 hr Previous Rx's ?Medication ?Instructions ?Recorded cefdinir 300 mg capsule 300 mg PO BID #20 caps 07/04/24 ketorolac 10 mg tablet 10 mg PO Q6H PRN pain #20 tabs 07/04/24 ondansetron 4 mg disintegrating 4 mg PO Q6H #20 tabs 07/04/24 tablet oxycodone 5 mg tablet 5 mg PO Q6H PRN pain #12 tabs 07/04/24 Allergies Allergy/AdvReac Type Severity Reaction Status Date / Time No Known Drug Allergies Allergy Verified 07/04/24 11:41 Review of Systems Status of ROS: Reports: 10 or more systems reviewed and unremarkable except as noted in History and below PFSH [facility] Medical History Flank pain ?R10.9 - Unspecified abdominal pain (ICD-10) Social History Smoking Status: Never smoker Exam Narrative: Exam Narrative: Const: Well-nourished, Well-developed, in moderate distress Eyes: PERRL, no conjunctival injection, and symmetrical lids HENT: Atraumatic external nose and ears. Moist mucous membranes. Neck: Symmetric, trachea midline, No thyromegaly. CVS: RRR, No murmurs or gallops. Peripheral pulses 2+ and equal in all extremities RESP: Unlabored respiratory effort. Clear to auscultation bilaterally. GI: Mild lower abdominal tenderness with no guarding or rebound. Bilateral CVA tenderness worse on the right. MSK:Extremities w/o deformity, Normal Active ROM Skin: Warm, Dry. No rashes or lesions. Neuro: Normal Muscle tone, No focal neurological deficits. Psych: Awake, Alert, & Oriented x3. Appropriate mood and affect. Const: Vital Signs, click to edit/add: Vital Signs - 24 hr 07/04/24 11:36 07/04/24 11:45 Temperature 98.9 F Pulse Rate [Right Pulse Oximeter] 89 Respiratory Rate 18 Blood Pressure [Ri ght Upper Arm] 111/77 Pulse Oximetry 98 Oxygen Delivery Me thod Room Air Course Vital Signs Vital signs: Initial Vital Signs Pulse Rate 89 07/04/24 11:36 Pulse Rhythm Regular 07/04/24 11:36 Pulse Strength 3+ Normal 07/04/24 11:36 Respiratory Rate 18 07/04/24 11:36 Blood Pressure 111/77 07/04/24 11:36 Blood Pressure Mean 88 07/04/24 11:36 Blood Pressure Position Sitting 07/04/24 11:36 Pulse Oximetry 98 07/04/24 11:36 Oxygen Delivery Method Room Air 07/04/24 11:36 Vital Signs Pulse Rate 89 07/04/24 11:36 Respiratory Rate 18 07/04/24 11:36 Blood Pressure 111/77 07/04/24 11:36 Pulse Oximetry 98 07/04/24 11:36 Oxygen Delivery Method Room Air 07/04/24 11:36 Temperature 98.9 F 07/04/24 11:45 Pulse Rate 89 07/04/24 11:36 Respiratory Rate 18 07/04/24 11:36 Blood Pressure 111/77 07/04/24 11:36 Pulse Oximetry 98 07/04/24 11:36 Oxygen Delivery Method Room Air 07/04/24 11:36 Medications Administered Medications: Discontinued Medications Generic Name Dose Route Start Last Admin Trade Name Karina PRN Reason Stop Dose Admin Sodium Chloride 1,000 mls @ 1,000 mls/hr 07/04/24 12:00 07/04/24 13:17 0.9 % Sodium Chloride 1000 Ml IV 07/04/24 12:59 Infused .Q1H SAE Infusion Ketorolac Tromethamine 15 mg 07/04/24 11:49 07/04/24 12:07 Ketorolac 15 Mg/Ml Inj IVP 07/04/24 11:50 15 mg ONCE ONE Administration Ondansetron HCl 4 mg 07/04/24 11:49 07/04/24 12:07 Ondansetron 2 Mg/Ml Inj IVP 07/04/24 11:50 4 mg ONCE ONE Administration Medical Decision Making [facility] Narrative Medical decision making narrative: Patient is a 39-year-old female presenting for bilateral flank pain. Main concern at this time is pyelonephritis. Is also some concern for bilateral nephrolithiasis but this is less likely. Pain is more intermittent. As she does have bilateral flank pain there is some concern for a AAA rupture but as she is relatively your leg and has stable vital signs this seems unlikely. Will do a CT scan for better evaluation. Will also ordered a CMP and urine test along with a lipase. Do not believe is necessary to repeat labs done at urgent care. Lab work done here shows no concerning abnormalities. Her pain improved significantly with the Toradol. CT scan reviewed by myself the radiologist show no acute concerning abnormalities. She does have the involuting bilateral ovarian follicles but she does not have large cyst in also even if this was ov ag torsion I would expect her to have more severe abdominal pain as opposed to the cramping sensations she is describing. No obvious signs of nephrolithiasis or pyelonephritis. Considering her pain though and the white blood cell seen on her urinalysis I am concerned she could have an ascending UTI and think it is reasonable to start her on antibiotics. She is agreeable to this plan. Will give her Toradol in oxycodone for pain. Lab Data Labs: Lab Results 07/04/24 Range/Units Unknown Sodium 134 L (135-149) mmol/L Potassium 3.7 (3.6-5.1) mmol/L Chloride 107 (96-114) mmol/L Carbon Dioxide 18 L (20-32) mmol/L Anion Gap 9 (7-15) mEq/L BUN 9 (5-24) mg/dL Creatinine 0.8 (0.5-1.5) mg/dL Estimated Creat Clear 99.64 Estimated GFR 97 ml/min Glucose 94 (60-115) mg/dL Calcium 9.3 (8.4-10.6) mg/dL Total Bilirubin 0.6 (0.1-1.5) mg/dL AST 27 (12-35) U/L ALT 26 (4-35) U/L Alkaline Phosphatase 63 (40-150) U/L Total Protein 7.5 (6.0-8.3) g/dL Albumin 4.7 (3.3-5.0) g/dL Lipase 53 (23-300) U/L Discharge Plan Discharge Clinical Impression: UTI (urinary tract infection) Patient Disposition: Home, Self-Care Condition: Improved Instructions: Urinary Tract Infection in Women (DC) Additional Instructions: At this time I do not see any obvious signs of a UTI on your CT scan but you do have some mild signs of urinary tract infection in your urinalysis. Considering your symptoms I will treat he was if you have an ascending UTI in will use a longer course of antibiotics than typically use for UTI. You do have some ovarian cyst but they now appear large enough to cause torsion at this time. If you do though start developing severe sharp pelvic pain return for re- evaluation. Return to emergency department for new or worsening symptoms. Prescriptions: New ketorolac 10 mg tablet 10 mg PO Q6H PRN (Reason: pain) Qty: 20 0RF Rx Instructions: maximum total duration of 5 days from all oral, intranasal, or parenteral formulations ondansetron 4 mg tablet,disintegrating 4 mg PO Q6H Qty: 20 0RF oxycodone 5 mg tablet 5 mg PO Q6H PRN (Reason: pain) Qty: 12 0RF cefdinir 300 mg capsule 300 mg PO BID Qty: 20 0RF No Action venlafaxine 37.5 mg capsule,extended release 24hr PO Follow Up/Referrals: Cristobal Freeman MD [Primary Care Provider] - Stand Alone Forms: AMKAI Info Instructions
--- OUTSIDE RECORDS SUMMARY | 2024-07-04 12:02 | XMS_ITS | Referral Summary ---
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 Not on file Not on file Last Filed Vital Signs Vital Sign Reading Time Taken Comments Blood Pressure 119/60 12/24/2021 3:25 PM CDT Pulse 65 08/18/2021 6:30 PM POSSUM TRAPPER Temperature 36.9 C (98.4 F) 12/24/2021 3:15 PM CDT Respiratory Rate 18 12/24/2021 3:15 PM CDT Oxygen Saturation 98% 08/18/2021 6:40 PM POSSUM TRAPPER Inhaled Oxygen Concentration - - Weight 72.6 kg (160 lb) 02/08/2015 6:05 PM CDT Height 175.3 cm (5' 9) 11/21/2008 10:02 AM CDT Body Mass Index 23.63 11/21/2008 10:02 AM CDT Plan of Treatment Not on file Procedures Procedure Name Priority Date/Time Associated Diagnosis Comments BASIC METABOLIC PANEL STAT 08/18/2021 6:28 PM POSSUM TRAPPER from Last 3 Months or Most Recently Relevant to Health Maintenance Results * (ABNORMAL) Basic metabolic panel (08/18/2021 6:28 PM POSSUM TRAPPER) Sodium 137 133 - 144 mmol/L 08/18/2021 6:55 PM [facility] Potassium 3.6 3.4 - 5.3 mmol/L 08/18/2021 6:55 PM [facility] Chloride 107 94 - 109 mmol/L 08/18/2021 6:55 PM [facility] Carbon Dioxide (CO2) 25 20 - 32 mmol/L 08/18/2021 6:55 PM [facility] Anion Gap 5 3 - 14 mmol/L 08/18/2021 6:55 PM [facility] Urea Nitrogen 11 7 - 30 mg/dL 08/18/2021 6:55 PM [facility] Creatinine 0.70 0.52 - 1.04 mg/dL 08/18/2021 6:55 PM [facility] Calcium 8.6 8.5 - 10.1 mg/dL 08/18/2021 6:55 PM [facility] Glucose 102(H) 70 - 99 mg/dL 08/18/2021 6:55 PM [facility] GFR Estimate >90 >60 mL/min/1.7 3m2 08/18/2021 6:55 PM [facility] Comment:Effective May 242020 eGFRcr in adults is calculated using the 2020 CKD-EPI creatinine equation which includes age and gender (Shahzad et al., NEJ, DOI: 10.1056/ZXXEph7696805) Blood STRUCTURE OF RIGHT UPPER LIMB / Unknown Venipuncture / Unknown 08/18/2021 6:28 PM POSSUM TRAPPER 08/18/2021 6:34 PM POSSUM TRAPPER us Bia Scott MD LAB - BLOOD ORDERAB LES Final Result [facility]ORATORY [facility] [address] [facility], no room number) [place] [address] [phone] from Last 3 Months or Most Recently Relevant to Health Maintenance Insurance [facility] Care Teams Automobile Upholsterer Relationship Specialty Start Date End Date Heather Eisenberg MD [facility] [address] [place] [address] PCP - General hat presser 08/18/21 Erica Fajardo PA-C [address] [place] [address] 02/08/15
--- OUTSIDE RECORDS SUMMARY | 2024-07-04 12:02 | XMS_ITS | Clinical Summary ---
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 Complications:None Delivery Location:[facility] ([facility]) 2021 Term [...] PM CDT care, subsequent in first trimester LEVEL VIAL SEALER THIN PREP PAP SCREEN IMAGED Routine 06/26/2017 11:02 AM FARM OWNER OPERATOR from Last 3 Months or Most Recently Relevant to Health Maintenance Results * ANTI HCV (03/16/2019 2:02 PM CDT) Pathologist [facility] HEPATITIS C ANTIBODY Non-React lakeisha Non-React lakeisha 03/16/2019 9:38 PM CDT [facility] Comment:Antibodies to HCV no t detected; does not exclude the possibility of exposure to HCV. Blood BLOOD SPECIMEN / Unknown Venipuncture / Unknown 03/16/2019 2:02 PM CDT 03/16/2019 2:02 PM CDT us Marcela Palmer NP SEND OUTS Final Result [facility] [address] [place] [address], * ANTI HIV 1/2 (03/16/2019 2:02 PM CDT) Pathologist [facility] HIV-1/HIV-2 ANTIBODY Non-Reacti ve Non-Reacti ve 03/16/2019 9:34 PM CDT [facility] Comment:HIV-1 p24 and HIV-1/ HIV-2 Ab not detected. Blood BLOOD SPECIMEN / Unknown Venipuncture / Unknown 03/16/2019 2:02 PM CDT 03/16/2019 2:02 PM CDT us Marcela Palmer NP SEND OUTS Final Result [facility] [address] [place] [address], [place] * LEVEL VIAL SEALER THIN PREP PAP SCREEN IMAGED (06/26/2017 11:02 AM FARM OWNER OPERATOR) Case Report Gynecologic Cytology Report Case: [id number] Authorizing Provider: Veronica Casanova MD Collected: 06/26/2017 1102 First Screen: Nico Ingram Received: 06/29/2017 1102 Specimen: LEVEL VIAL SEALER ThinPrep Vial Screening, Cervical/Vaginal 07/07/2017 9:05 AM [facility] INTERPRETATION/ RESULT NEGATIVE FOR INTRAEPITHELIAL LESION OR MALIGNANCY (NIL) (none) 07/07/2017 9:05 AM FARM OWNER OPERATOR [facility] NISM(S) Fungal organisms morphologically consistent with Zuleyka species 07/07/2017 9:05 AM FARM OWNER OPERATOR [facility] SPECIMEN ADEQUACY Satisfactory for evaluation No endocervical component seen in a patient 07/07/2017 9:05 AM FARM OWNER OPERATOR [facility] HPV REQUEST HPV and PAP 07/07/2017 9:05 AM FARM OWNER OPERATOR [facility] Date of LMP 03/23/2017 07/07/2017 9:05 AM FARM OWNER OPERATOR [facility] Menstrual Status 07/07/2017 9:05 AM FARM OWNER OPERATOR [facility] Automated Review Successful 07/07/2017 9:05 AM [facility] Comment:Specimen processed s uccessfully by automated software implementation specialist device, ThinPrep Imaging System, [employer] ANCILLARY TESTING LEVEL VIAL SEALER HPV Ordered, Please see separate report 07/07/2017 9:05 AM FARM OWNER OPERATOR [facility] Note The pap test [...] exclude pre-malignant and malignant lesions. Interpreted at [facility] ([facility], [facility], [facility], [facility], [facility], [facility], [facility]) 07/07/2017 9:05 AM FARM OWNER OPERATOR [facility] Other (Cervical/Vagina l) 06/26/2017 11:02 AM FARM OWNER OPERATOR 06/29/2017 11:02 AM FARM OWNER OPERATOR Veronica Casanova MD PATHOLOGY/CYTOLOGY Final Result [facility] [address] [place] [address], from Last 3 Months or Most Recently Relevant to Health Maintenance Insurance [employer] Advance Directives * Full Code (Latest Code [...] 5:55 AM 11/11/2015 8:38 AM Care Teams Continuous Pickling Line Pickler Relationship Specialty Start Date End Date Cristobal Freeman MD PCP - General Family Practice 06/30/18
--- OUTSIDE RECORDS SUMMARY | 2024-07-04 12:02 | XMS_ITS | Encounter Summary ---
Author Organization [facility] Address [address] [place] [address]. 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 No / Unsure 08/18/2021 6:01 PM ASSISTANT DISTRICT ATTORNEY documented as of this encounter Plan of Treatment Not on file documented as of this encounter Visit Diagnoses Not on filedocumented in this encounter Care Teams Disassembler Product Relationship Specialty Start Date End Date Heather Eisenberg MD [facility] [address] [place] [address] PCP - General clasp machine operator 08/18/21 Erica Fajardo PA-C [address] [place] [address] 02/08/15 documented as of this encounter
--- OUTSIDE RECORDS SUMMARY | 2024-07-04 12:02 | XMS_ITS | Clinical Summary ---
Author Organization [facility] Address [address] [place] [address] Care Team Providers Care Make Up Girl Name Role Phone Needs Pcp, Assignment Primary Care Provider [phone] Source Comments You are receiving this document as you are listed as the primary care provider,follow-up provider, or the patient has been referred to you for consultation.This is in compliance with the Medicare and[facility] EHR Incentive Program,which states Providers who transition their patient to another setting of careor provider of care or refers their patient to another provider of care shouldprovide summary care record for each transition of care or referral. [employer] Allergies No known active allergies Medications Medication [...] (Polio) 02/07/1992 Influenza IIV4 (Quadrivalent ) 0.5mL (65530) 07/30/2021,03/24/2019,03/31/2018, 017 Influenza LAIV (Nasal, 2-49 yrs) [...] 175.3 cm (5' 9) 07/30/2021 1:03 PM TRACE CLERK Body Mass Index 26.17 07/30/2021 1:03 PM TRACE CLERK Plan of Treatment Health Maintenance Due Date [...] Comments PAP TEST Routine 07/30/2021 2:16 PM TRACE CLERK High-risk in first trimester Screening for malignant neoplasm of cervix HIV 1/2 AG/AB 4TH GEN Routine 07/30/2021 2:14 PM TRACE CLERK High-risk in first trimester HEPATITIS C ANTIBODY, WITH REFLEX Routine 07/30/2021 2:14 PM TRACE CLERK High-risk in first trimester from Last 3 Months or Most Recently Relevant to Health Maintenance Results * PAP Test (07/30/2021 2:16 PM TRACE CLERK) Case Report Pap Case: [id number] Authorizing Provider: Heather Murphy MD Collected: 07/30/2021 1416 Ordering Location: [place] [address] Received: 07/30/2021 1550 Obstetrics/Gynec ology First Screen: Anitha Santillan Rescreen: Lidia Ferrera CT (ASCP) Specimen: Pap Test, Routine, Cervix/Endocervix 08/10/2021 2:37 PM TRACE CLERK [facility] Pap Specimen Adequacy Satisfactory for evaluation, endocervical/madison sformation zone component present. 08/10/2021 2:37 PM TRACE CLERK [facility] Pap Interpretation (NILM) Negative for intraepithelial lesion or malignancy. 08/10/2021 2:37 PM TRACE CLERK [facility] Pap Disclaimer The Pap test is a screening test designed to aid in the detection of cervical cancer and its precursor lesions. It is not a diagnostic procedure and should not be used as the sole means of detecting cervical cancer. Both false-positive and false-negative results may occur. 08/10/2021 2:37 PM TRACE CLERK [facility] Gross Description The specimen is received in SurePath fixative and properly labeled. 1 Pap-stained SurePath slide is prepared. 08/10/2021 2:37 PM TRACE CLERK [facility] Embedded Images 2:37 PM TRACE CLERK [facility] Other Specimen Type ENTIRE ENDOCERVIX / Unknown 07/30/2021 2:16 PM TRACE CLERK 07/30/2021 3:50 PM TRACE CLERK Comment:LMP: Patient's last menstrual period was 05/17/2021. Heather Murphy MD LAB PATHOLOGY [facility] [address] * HIV 1/2 Ag/Ab 4th Generation (07/30/2021 2:14 PM TRACE CLERK) HIV 1/2 Antigen/Antib fredi (4th generation) Negative (Non Reactive) Negative (Non Reactive) 07/30/2021 8:26 PM TRACE CLERK [facility] Comment:HIV-1 p24 Antigen an d HIV-1/HIV-2 Antibody not detected Blood Venipuncture / Unknown 07/30/2021 2:14 PM TRACE CLERK 07/30/2021 2:14 PM TRACE CLERK Heather Murphy MD LAB_1 Performing Organization Address City/[facility]/ZIP Co de Phone Number [facility] [address] * Hepatitis C Antibody, with Reflex (07/30/2021 2:14 PM TRACE CLERK) Hepatitis C Antibody Negative (Non Reactive) Negative (Non Reactive) 07/30/2021 8:26 PM TRACE CLERK [facility] Comment:Antibodies to HCV no t detected. Does not exclude the possiblity of exposure to HCV. Blood Venipuncture / Unknown 07/30/2021 2:14 PM TRACE CLERK 07/30/2021 2:14 PM TRACE CLERK Heather Murphy MD LAB_1 Performing Organization Address City/[facility]/ZIP Co de Phone Number [facility] [address] from Last 3 Months or Most Recently Relevant to Health Maintenance Care Teams Make Up Girl Relationship Specialty Start Date End Date Needs Pcp, [place] [address] PCP - General 01/14/24
--- OUTSIDE RECORDS SUMMARY | 2024-07-04 12:02 | XMS_ITS | Encounter Summary ---
Author Organization [facility] Address [address] [place] [address] Care Team Providers Care Heating And Air Conditioning Mechanic Name Role Phone Doctor, Enzo BERG Primary Care Provider Erica Barnes PA-C Primary Care Pr ovider Shelly Garcia Primary Care Provider Erica Toney PA-C Unavailable Heather Eisenberg MD Primary Care Provider [phone] Encounter Details Date Type Department Care Team (Late st Contact Info) Description 03/14/[address] [place] [address] Kendra Sparks MD [address] [place] [address] ER ENCOUNTER (Primary Dx) Social [...] on file 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 HISTORY [...] _ SHAUNNA LEAL MD [place] : Document: [id number] [place], [place] Name: MCKENZIE DICKERSON EMERGENCY ROOM ENCOUNTER Page 2 of 2 LCN: ERC DSC: 03/14/2002 [place], [place] Name: MR#: : Admit Date: MCKENZIE DICKERSON -88 1985 03/14/2002 D octor: SHAUNNA LEAL MD EMERGENCY ROOM ENCOUNTER Page 1 of 2 Electronically filed by Anders olivas 06/10/2002 2:47 PM documented in this encounter Plan of Treatment Not on file documented as of this encounter Visit Diagnoses Diagnosis ER ENCOUNTER- Primary documented in this encounter Care Teams Heating And Air Conditioning Mechanic Relationship Specialty Start Date End Date Enzo Diaz MD PCP - General 08/07/01 05/10/03 Erica Fajardo PA-C [address] [place] [address] PCP - General 05/11/03 02/07/15 Shelly Garcia PCP - General 02/08/15 08/17/21 Heather Eisenberg MD [facility] [address] [place] [address] PCP - General drawing frame tender 08/18/21 Erica Fajardo PA-C [address] [place] [address] 02/08/15 documented as of this encounter
--- OUTSIDE RECORDS SUMMARY | 2024-07-04 12:02 | XMS_ITS | Encounter Summary ---
Author Organization [facility] Address [address] [place] [address]. 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 DATE: 08/03/2008 CHRISTINE ARAGON DATE OF : 1985 AGE: [age] years old Referring Physician: RAFAL DEUTSCH Referring Clinic: [facility] CURRENT DIAGNOSES 1. - Tobacco excess, [...] syncopal spells. Ms. 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
--- OUTSIDE RECORDS SUMMARY | 2024-07-04 12:02 | XMS_ITS | Clinical Summary ---
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 Not on file Not on file Not on file Last Filed Vital Signs Vital Sign Reading Time Taken Comments Blood Pressure 119/60 12/24/2021 3:25 PM CDT Pulse 65 08/18/2021 6:30 PM REPAIR MILLER Temperature 36.9 C (98.4 F) 12/24/2021 3:15 PM CDT Respiratory Rate 18 12/24/2021 3:15 PM CDT Oxygen Saturation 98% 08/18/2021 6:40 PM REPAIR MILLER Inhaled Oxygen Concentration - - Weight 72.6 [...] BASIC METABOLIC PANEL STAT 08/18/2021 6:28 PM REPAIR MILLER from Last 3 Months or Most Recently Relevant to Health Maintenance Results * (ABNORMAL) Basic metabolic panel (08/18/2021 6:28 PM REPAIR MILLER) Sodium 137 133 - 144 mmol/L 08/18/2021 6:55 PM [facility] Potassium 3.6 3.4 - 5.3 mmol/L 08/18/2021 6:55 PM [facility] Chloride 107 94 - 109 mmol/L 08/18/2021 6:55 PM [facility] Carbon Dioxide (CO2) 25 20 - 32 mmol/L 08/18/2021 6:55 PM [facility] Anion Gap 5 3 - 14 mmol/L 08/18/2021 6:55 PM [facility] Urea Nitrogen 11 7 - 30 mg/dL 08/18/2021 6:55 PM [facility] Creatinine 0.70 0.52 - 1.04 mg/dL 08/18/2021 6:55 PM [facility] Calcium 8.6 8.5 - 10.1 mg/dL 08/18/2021 6:55 PM [facility] Glucose 102(H) 70 - 99 mg/dL 08/18/2021 6:55 PM [facility] GFR Estimate >90 >60 mL/min/1.7 3m2 08/18/2021 6:55 PM [facility] Comment:Effective May 242020 eGFRcr in adults is calculated using the 2020 CKD-EPI creatinine equation which includes age and gender (Grocery Clerk Marking et al., NEJM, DOI: 10.1056/CXIDbz2562302) Blood STRUCTURE OF RIGHT UPPER LIMB / Unknown Venipuncture / Unknown 08/18/2021 6:28 PM REPAIR MILLER 08/18/2021 6:34 PM REPAIR MILLER us Bia Scott MD LAB - BLOOD ORDERAB LES Final Result [facility] [address] [facility] (1st floor, no room number) [place] [address], [facility] [phone] from Last 3 Months or Most Recently Relevant to Health Maintenance Insurance [facility] Care Teams Silviculture Professor Relationship Specialty Start Date End Date Heather Eisenberg MD [facility] [address] [place] [address] PCP - General grading machine feeder 08/18/21 Erica Fajardo PA-C [address] [place] [address] 02/08/15
[2024-07-04] MEDS: KETOROLAC 15 MG/ML inj IVP (12:07)
[2024-07-04] MEDS: ONDANSETRON 2 MG/ML inj 4 MG IVP (12:07)
[2024-07-04] MEDS: 0.9 % SODIUM CHLORIDE 1000 ml 1,000 ML IV (12:07)
[2024-07-04 12:20] LABS: Albumin* 4.7 g/dL (3.3-5.0)
[2024-07-04 12:21] LABS: Chloride* 107 mmol/L (96-114); Potassium* 3.7 mmol/L (3.6-5.1); Sodium* 134 mmol/L (135-149)
[2024-07-04 12:23] LABS: Alkaline Phosphatase* 63 U/L (40-150); Anion Gap 9 mEq/L (7-15); Aspartate Amino Transferase* 27 U/L (12-35); Bilirubin Total* 0.6 mg/dL (0.1-1.5); Carbon Dioxide* 18 mmol/L (20-32); Creatinine* 0.8 mg/dL (0.5-1.5); Est. Creatinine Clearance* 99.64; Estimated Glomerular Filt Rate 97 ml/min; Total Protein* 7.5 g/dL (6.0-8.3)
[2024-07-04 12:24] LABS: Alanine Aminotransferase* 26 U/L (4-35); Blood Urea Nitrogen* 9 mg/dL (5-24); Calcium* 9.3 mg/dL (8.4-10.6); Glucose* 94 mg/dL (60-115); Lipase* 53 U/L (23-300)
== END 2024-07-04 14:45 | disposition home or self-care (01) ==
PROVIDERS: Emergency Provider Student in an Organized Health Care Education/Training Program; PCP Family Medicine
DX: N39.0 Urinary tract infection, site not specified (principal)
CPT/HCPCS: 36415; 74177; 80053; 81001; 81025; 83690; 85025; 87631; 96361; 96374; 96375; 99283; 99284; 99285; J1885; J2405; J7030; Q9967

== ENCOUNTER 2024-10-04 09:40 | Outpatient (CLI) | payer OTHER, SELFPAY | END 2024-10-04 09:41 | disposition home or self-care (01) | LOC: NFLDREF 10-06 08:40 | PROVIDERS: PCP Family Medicine; Referring Provider Family Medicine; Visit Provider Obstetrics & Gynecology | DX: N96 Recurrent pregnancy loss (principal); N97.9 Female infertility, unspecified | CPT/HCPCS: 82670; 83001; 83002; 83520; 84146; 84443 ==

== ENCOUNTER 2024-10-12 08:55 | Outpatient (CLI) | payer OTHER, SELFPAY ==
--- NOTE | 2024-10-12 09:15 | CRLHL7_ITS ---
For Patients: As a result of the Century Cures Act, medical imaging exams and procedure reports are released immediately into your electronic medical record. You may view this report before your referring provider. If you have questions, please contact your health care provider. Indication: Recurrent loss Technique: Routine hysterosalpingogram performed. Fluoroscopic time 0.3 minutes. IMPRESSION: No endometrial filling defect. Normal spillage of contrast from the fallopian tubes into the peritoneal cavity. Normal exam. Dictated by Gilbert Powers MD @ 10/12/2024 10:49:17 AM (Electronically Signed)
--- NOTE | 2024-10-12 09:44 | W.PM.GYNPROC ---
Procedure Note Date of procedure: 10/12/24 Will [facility] bill your pro fee for this procedure?: Yes Pre-op diagnosis: Secondary Infertility evaluation Post-op diagnosis: Secondary Infertility evaluation Procedure: Hysterosalpingogram Anesthesia: none Complications: None Surgeon: Genevieve Farfan MD Estimated blood loss (mL): 5 Pathology: none sent Condition: stable Disposition: other (Home, self care) Findings: Normal HSG Procedure Description: PROCEDURE: After obtaining verbal consent, the patient was placed in the dorsal lithotomy position on the x-ray table. An open-sided bivalve speculum was introduced into the vagina and the cervix easily visualized. The cervix and vagina were then prepped with Betadine. The anterior lip of the cervix was grasped with a single-tooth tenaculum for traction. A balloon tipped double-lumen catheter was then gently inserted through the cervical opening into the uterine cavity to the level of the fundus. The balloon was insufflated with 3 mL of air. The tenaculum and speculum were removed. The patient was repositioned in the supine position, covered, and the radiologist was called to the room. A hysterosalpingogram was then performed. A total of 15 cc of Optiray 300 water soluble contrast dye was injected through the double-lumen catheter under moderate pressure. There was immediate fill of the uterine cavity to the cornua and immediate fill of both fallopian tubes and free spillage of dye on both sides. The balloon was deflated. The catheter was removed. The patient tolerated the procedure well, though she did have moderate cramping discomfort during and just after the procedure. She was discharged to home in stable condition and to [facility].
== END 2024-10-12 08:56 | disposition home or self-care (01) ==
LOC: RAD 08:55
PROVIDERS: PCP Family Medicine; Visit Provider Obstetrics & Gynecology
DX: N96 Recurrent pregnancy loss (principal)
CPT/HCPCS: 58340; 74740; A4649; Q9967

== ENCOUNTER 2024-10-22 11:40 | Outpatient (CLI) | payer OTHER, SELFPAY | END 2024-10-22 11:41 | disposition home or self-care (01) | LOC: NFLDREF 10-28 18:38 | PROVIDERS: PCP Family Medicine; Referring Provider Family Medicine; Visit Provider Obstetrics & Gynecology | DX: N96 Recurrent pregnancy loss (principal) | CPT/HCPCS: 84144 ==

== ENCOUNTER 2025-02-23 08:43 | Outpatient (CLI) | payer OTHER, SELFPAY | END 2025-02-23 08:44 | disposition home or self-care (01) | LOC: NFLDREF 08:45 | PROVIDERS: PCP Family Medicine; Visit Provider Obstetrics & Gynecology | DX: Z31.9 Encounter for procreative management, unspecified (principal) | CPT/HCPCS: 84702 ==